=== PATIENT | female | born 1990 | race Caucasian/White ===

== ENCOUNTER 2017-11-29 15:31 | Outpatient (CLI) | payer OTHER, SELFPAY ==
[2017-11-29 16:46] LABS: Cholesterol 137 mg/dL (50-200); Glucose 80 mg/dL (70-100); HDL Cholesterol 74 mg/dL (40-60); LDL CHOLESTEROL 53 mg/dL (<100); Triglyceride 86 mg/dL (30-150)
== END 2017-11-29 15:51 ==
PROVIDERS: PCP Family Medicine; Visit Provider Family Medicine
DX: E11.9 Type 2 diabetes mellitus without complications (principal); Z13.220 Encounter for screening for lipoid disorders
CPT/HCPCS: 36415; 80061; 82947; 83721

== ENCOUNTER 2017-12-21 17:59 | Outpatient (REF) | payer OTHER, SELFPAY ==
[2017-12-23 14:48] LABS: Chlamydia Result Positive; Specimen Description CERVIX
[2017-12-23 15:01] LABS: GC Result Negative
== END 2017-12-21 18:19 ==
LOC: LBN 17:59
PROVIDERS: Obstetrics & Gynecology Gynecology; PCP Family Medicine; Visit Provider Nurse Practitioner Family
DX: Z11.3 Encounter for screening for infections with a predominantly sexual mode of transmission (principal); M54.9 Dorsalgia, unspecified
CPT/HCPCS: 87491; 87591; 87086

== ENCOUNTER 2018-01-03 00:30 | Outpatient (CLI) | payer OTHER, SELFPAY ==
--- NOTE | 2018-01-03 12:50 | DI.US_ITS ---
SYMPTOMS/DIAGNOSIS: BACK PAIN, M54.9 PELVIC ULTRASOUND: Comparison is made with [id number]. Transabdominal and transvaginal exams were performed. The uterus measures 5.9 x 2.6 x 3.8 cm. The endometrial stripe measures 2 mm in thickness. A few tiny follicles are seen on both ovaries. No cyst or mass is identified. The kidneys and bladder are unremarkable. IMPRESSION: Negative pelvic ultrasound.
== END 2018-01-03 00:50 ==
PROVIDERS: PCP Family Medicine; Visit Provider Nurse Practitioner Family
DX: M54.5 Low back pain (principal); R10.2 Pelvic and perineal pain; N83.01 Follicular cyst of right ovary; N83.02 Follicular cyst of left ovary
CPT/HCPCS: 76830; 76856

== ENCOUNTER 2018-05-13 16:24 | Outpatient (REF) | payer BC, SELFPAY ==
--- NOTE | 2018-05-13 16:00 | PAPFT_PTH ---
PATIENT: Yarelis Machado LOC: [facility] U#:[id number] AGE/SX: 28/F ROOM: RE05/13/[address]: JUSTIN Crook : 1990 BED: DIS: 05/13/2018 SPEC #: [id number] RECD: 05/13/18 17:04 STATUS: ISAÍAS REGeorge #: [id number] GAL: 05/13/18 16:[address]: Erica Hollis DEPT: [facility] Cytology RECD BY: Lisa Lopez ENTERED: 05/13/18 17:04 SP TYPE: PAPFT OT DR: Gustavo Chambers MD Tissues: 1 - CX/ENDOCX FOR PAP SMEARS Procedures: PAP THIN PREP/[facility] Screening Comments: [id number]
[2018-05-16 15:05] LABS: Chlamydia Result Negative; GC Result Negative
== END 2018-05-13 16:44 ==
LOC: LBN 16:24
PROVIDERS: PCP Family Medicine; Visit Provider Nurse Practitioner Family
DX: Z11.3 Encounter for screening for infections with a predominantly sexual mode of transmission (principal); Z12.4 Encounter for screening for malignant neoplasm of cervix
CPT/HCPCS: 87491; 87591; 88142

== ENCOUNTER 2019-09-11 18:29 | Outpatient (REF) | payer BC, SELFPAY ==
[2019-09-14 14:00] LABS: Chlamydia Result Negative (Negative); GC Result Negative (Negative)
== END 2019-09-11 18:49 ==
LOC: LBN 18:29
PROVIDERS: Nurse Practitioner Women's Health; PCP Family Medicine; Visit Provider Nurse Practitioner Family
DX: Z11.3 Encounter for screening for infections with a predominantly sexual mode of transmission (principal)
CPT/HCPCS: 87491; 87591

== ENCOUNTER 2021-01-27 18:37 | Outpatient (REF) | payer BC, SELFPAY ==
[2021-01-29 14:01] LABS: Chlamydia Result Negative (Negative); GC Result Negative (Negative)
== END 2021-01-27 18:38 | disposition home or self-care (01) ==
LOC: NCHCN 18:37
PROVIDERS: PCP Family Medicine; Visit Provider Nurse Practitioner Women's Health
DX: Z11.3 Encounter for screening for infections with a predominantly sexual mode of transmission (principal)
CPT/HCPCS: 87491; 87591

== ENCOUNTER 2021-05-20 16:31 | Outpatient (REF) | payer BC, SELFPAY ==
[2021-05-22 11:30] LABS: COVID-19 RT-PCR UVMMC Result Positive (Negative)
== END 2021-05-20 16:32 | disposition home or self-care (01) ==
LOC: LBN 16:31
PROVIDERS: PCP Family Medicine; Visit Provider Family Medicine
DX: Z20.822 Contact with and (suspected) exposure to COVID-19 (principal); R05.9 Cough, unspecified; R06.7 Sneezing; R09.89 Other specified symptoms and signs involving the circulatory and respiratory systems
CPT/HCPCS: U0003

== ENCOUNTER 2022-02-16 16:12 | Outpatient (REF) | payer BC, SELFPAY ==
--- NOTE | 2022-02-16 15:50 | PAPFT_PTH ---
PATIENT: Yarelis Machado LOC: [facility] U#:[id number] AGE/SX: 31/F ROOM: RE02/16/[address]: Doris Hewitt NP : 1990 BED: DIS: 02/16/2022 SPEC #: [id number] RECD: 02/16/22 18:02 STATUS: ISAÍAS REQ #: [id number] GAL: 02/16/22 15:[address]: Marcelina GARCIA,Doris [facility]PT[facility] Cytology RECD BY: Lisa Lopez ENTERED: 02/16/22 18:02 SP TYPE: PAPFT OTHR DR: Gustavo Chambers MD Tissues: 1 - CX/ENDOCX FOR PAP SMEARS Procedures: PAP THIN PREP/[facility] Screening Comments: [id number]
== END 2022-02-16 16:13 | disposition home or self-care (01) ==
LOC: LBN 16:12
PROVIDERS: PCP Family Medicine; Visit Provider Nurse Practitioner Women's Health
DX: Z12.4 Encounter for screening for malignant neoplasm of cervix (principal)
CPT/HCPCS: 88142

== ENCOUNTER 2022-04-10 14:55 | Outpatient (REF) | payer BC, SELFPAY ==
[2022-04-10 21:26] LABS: Abs Immature Grans 0.06 10^3/uL (0.0-0.06); Absolute Basophil Count 0.11 10^3/uL (0.0-0.2); Absolute Eosinophil Count 0.04 10^3/uL (0.0-0.7); Absolute Lymphocyte Count 1.88 10^3/uL (1.2-3.4); Absolute Monocyte Count 1.03 10^3/uL (0.1-0.8); Absolute Neutrophil Count 14.93 10^3/uL (1.2-6.7); Basophils % 0.6; Eosinophils % 0.2; HCT 37.8 % (36.0-46.0); HGB 12.2 g/dL (11.2-15.7); Immature Grans % 0.3; Lymphocytes % 10.4; MCH 29.8 pg (27.0-33.0); MCHC 32.3 % (32.0-36.0); MCV 92 fL (80-95); MPV 10.4 fL (8.0-11.0); Monocytes % 5.7; Neutrophils % 82.8; Platelet Count 383 10^3/uL (130-400); RBC 4.09 10^6/uL (3.93-5.22); RDW 12.4 % (11.7-14.6); RDW-SD 42.3 fL; WBC 18.03 10^3/uL (4.4-10.8)
[2022-04-10 21:55] LABS: TSH (W/Ref FT4) 1.23 uIU/mL (0.36-3.74)
[2022-04-14 09:41] LABS: EBV EA IgG Negative (Negative)
== END 2022-04-10 14:56 | disposition home or self-care (01) ==
LOC: NCHCN 14:55
PROVIDERS: PCP Family Medicine; Visit Provider Physician Assistant
DX: J02.9 Acute pharyngitis, unspecified (principal); R59.0 Localized enlarged lymph nodes; Z86.16 Personal history of COVID-19
CPT/HCPCS: 86663; 84443; 85025; 87070

== ENCOUNTER 2023-03-25 16:00 | Outpatient (REF) | payer BC, SELFPAY ==
--- NOTE | 2023-03-25 15:45 | PAPFT_PTH ---
PATIENT: Yarelis Machado LOC: [facility] U#:[id number] AGE/SX: 33/F ROOM: RE03/25/[address]: Socorro Segovia DO : 1990 BED: DIS: 03/25/2023 SPEC #: [id number] RECD: 03/25/23 17:51 STATUS: ISAÍAS REQ #: [id number] GAL: 03/25/23 15:[address]: Socorro Segovia DEPT: [facility] Cytology RECD BY: Lisa Lopez ENTERED: 03/25/23 17:51 SP TYPE: PAPFT OTHR DR: Gustavo Chambers MD Tissues: 1 - CX/ENDOCX FOR PAP SMEARS Procedures: PAP THIN PREP/[facility] Screening HPV DNA PROBE Comments: [id number] (CHLAMYDIA/GC)
[2023-03-26 15:02] LABS: Chlamydia Result Negative (Negative); GC Result Negative (Negative)
== END 2023-03-25 16:01 | disposition home or self-care (01) ==
LOC: LBN 16:00
PROVIDERS: PCP Family Medicine; Visit Provider Obstetrics & Gynecology
DX: Z12.4 Encounter for screening for malignant neoplasm of cervix (principal)
CPT/HCPCS: 87491; 87591; 88142; 87624

== ENCOUNTER 2024-01-31 03:12 | Outpatient (CLI) | payer BC, SELFPAY ==
[2024-01-31 10:04] LABS: Calculated LDL 44 mg/dL (<100); Cholesterol 164 mg/dL (<200); Glucose 89 mg/dL (74-106); HDL Cholesterol 102 mg/dL (40-60); Triglyceride 91 mg/dL (<150)
[2024-01-31 20:54] LABS: HIV-1/2 Ag & Ab Screen Negative (Negative)
[2024-02-01 10:46] LABS: Hepatitis C Ab w Rflx HCV PCR Negative (Negative)
== END 2024-01-31 03:13 | disposition home or self-care (01) ==
LOC: LBO 03:12
PROVIDERS: PCP Family Medicine; Visit Provider Family Medicine
DX: E78.5 Hyperlipidemia, unspecified (principal); Z00.00 Encounter for general adult medical examination without abnormal findings; Z11.59 Encounter for screening for other viral diseases; R73.9 Hyperglycemia, unspecified
CPT/HCPCS: 36415; 80061; 82947; 86803; 87389